=== PATIENT | male | born 1980 | race Hispanic/Latino ===

== ENCOUNTER 2018-12-25 12:45 | Emergency (ER) | payer BC ==
[2018-12-25] MEDS ORDERED: SODIUM CHLORIDE 0.9% 1000ML 1,000 ML IV ONE (13:32)
[2018-12-25] MEDS ORDERED: METHYLPREDNISOLONE SOD SUCC 125MG/2ML VIAL ONE (13:32)
[2018-12-25] MEDS ORDERED: DiphenhydrAMINE HCL 50 MG/ML VIAL ONE (13:32)
[2018-12-25] MEDS ORDERED: KETOROLAC TROMETHAMINE 30MG/ML ONE (13:32)
[2018-12-25] MEDS ORDERED: PROCHLORPERAZINE EDISYLATE 10 MG/2 ML VIAL ONE (13:58)
[2018-12-25] MEDS ORDERED: IOHEXOL-350 75 ML VIAL IV ONE (15:05)
== END 2018-12-25 16:12 | disposition home or self-care (01) ==
LOC: EDH 12:45
DX: R51 Headache (principal); R11.0 Nausea; I10 Essential (primary) hypertension; F41.9 Anxiety disorder, unspecified; Z79.899 Other long term (current) drug therapy; Z87.891 Personal history of nicotine dependence; Z98.890 Other specified postprocedural states
CPT/HCPCS: 70450; 72132; 82948; 96374; 96375; 99285; J0780; J1200; J1885; J2930; J7030; Q9967

== ENCOUNTER 2018-12-29 12:59 | Emergency (ER) | payer BC ==
[2018-12-29] MEDS ORDERED: PROCHLORPERAZINE EDISYLATE 10 MG/2 ML VIAL ONE (13:49)
[2018-12-29] MEDS ORDERED: DiphenhydrAMINE HCL 50 MG/ML VIAL ONE (13:49)
[2018-12-29] MEDS ORDERED: KETOROLAC TROMETHAMINE 30MG/ML ONE (13:49)
[2018-12-29] MEDS ORDERED: SODIUM CHLORIDE 0.9% 1000ML 1,000 ML IV ONE (13:50)
== END 2018-12-29 15:48 | disposition home or self-care (01) ==
LOC: EDH 12:59
DX: R51 Headache (principal); F41.9 Anxiety disorder, unspecified
CPT/HCPCS: 96374; 96375; 99284; J0780; J1200; J1885; J7030